=== PATIENT | female | born 1945 | race Caucasian/White ===

== ENCOUNTER 2024-04-30 14:40 | Inpatient (IN) | payer MEDICARE, OTHER ==
[~2024-04-30] VITALS: Ht 162.6 cm; Wt 56.0 kg
[~2024-04-30 14:40] MED LIST: ACET325T55 PO; ASPI-1397 PO; ATOR-2 PO; CEPH-585 PO; CYCL-1 PO; DOXY-460 PO; GABA300C PO; HYDR-3972 PO; LISI20TA28 PO; ONDA-243 PO; etomidate 2mg/ml inj. ONE
[2024-04-30 14:43] VITALS: TEMP 98.7
[2024-04-30] MEDS ORDERED: iohexol 350MG/ML 100ml bottle IV ONE ×2 (14:47→16:06)
[2024-04-30] MEDS ORDERED: fentaNYL/PF 50MCG/1 ML 2ML syringe ONE (14:47)
[2024-04-30] MEDS ORDERED: iohexol 350 MG/ML 50ML vial IV ONE (14:47)
[2024-04-30] MEDS ORDERED: midazolam 1 mg/ML 2ml injection ONE (14:47)
[2024-04-30] MEDS ORDERED: LIDOcaine 1% 30ml preserv. free vial ONE (14:47)
[2024-04-30] MEDS ORDERED: heparin 1,000 UNITS/NS 500ml 0 ML ONE (14:47)
[2024-04-30] MEDS ORDERED: nitroGLYCERIN 500mcg/5mL D5W 0 ML IV ONE (14:48)
[2024-04-30] MEDS ORDERED: verapamil 2.5 mg/ml inj IV ONE (14:48)
[2024-04-30] MEDS ORDERED: LIDOcaine 1% (10mg/ml) 2ml vial ONE (14:48)
[2024-04-30] MEDS ORDERED: heparin 1,000unit/ml 10ml vial 0 ML ONE (14:48)
[2024-04-30 14:53] VITALS: PULSE 111; RESP 30; O2SAT 95
[2024-04-30 15:03] LABS: BASOPHILS % (AUTO) 0 % (0-1); EOSINOPHILS % (AUTO) 0 % (0-6); HEMATOCRIT 28.6 % (35.0-45.0); HEMOGLOBIN 9.1 g/dl (12.0-16.0); LYMPHOCYTES # (AUTO) 0.8 X10'3 (1.1-4.8); MEAN CORPUSCULAR HEMOGLOBIN 30.4 PG (27.0-31.0); MEAN CORPUSCULAR HGB CONC 31.8 g/dL (33.0-36.5); MEAN CORPUSCULAR VOLUME 95.4 FL (78-98); MEAN PLATELET VOLUME 8.6 FL (7.4-10.4); MONOCYTES # (AUTO) 0.5 X10'3 (0-0.9); MONOCYTES % (AUTO) 2.5 % (2-12); NEUTROPHILS # (AUTO) 18.4 X10'3 (1.8-7.7); NEUTROPHILS % (AUTO) 93.5 % (42-75); PLATELET COUNT 366 X10'3 (140-440); RED CELL DISTRIBUTION WIDTH 18.1 % (11.5-14.5); WHITE BLOOD COUNT 19.7 X10'3 (4.5-11.0)
[2024-04-30 15:08] LABS: ABG BASE EXCESS 5.4 mmol/L (-2.0-2.0); ABG HCO3 27.4 mmol/L (22.0-26.0); ABG OXYGEN SATURATION 92.5 % (92-98.5); ABG PCO2 (T) 30.8 mmHg (32.0-45.0); ABG PH (T) 7.567 (7.350-7.450); ABG PO2 (T) 62.8 mmHg (75.0-100.0); ALLEN'S TEST POSITIVE; FCOHb 0.3 % (0.5-1.5); FHHb 7.5 % (0.0-5.0); FMetHb 0.3 % (0.0-1.5); FO2Hb 91.9 % (94-97); MODE MASK - BIPAP; PATIENT TEMPERATURE 37.1; RESPIRATORY RATE 12 b/min; TIDAL VOLUME 509 mL; TOTAL HEMOGLOBIN 9.5 G/dl (12.0-16.0)
[2024-04-30 15:25] LABS: ALBUMIN 1.9 G/DL (3.4-5.0); ANION GAP 10 (8-16); BLOOD UREA NITROGEN 31 MG/DL (7-18); BUN/CREATININE RATIO 20.9 (10.0-20.0); CHLORIDE 105 MMOL/L (99-107); CREATININE 1.48 MG/DL (0.40-0.90); GLUCOSE 100 MG/DL (70-104); SODIUM 147 MMOL/L (135-145); TOTAL CARBON DIOXIDE 32.4 MMOL/L (24-32); eCRCL 28 ML/MIN; eGFR 34 ML/MIN
[2024-04-30 15:31] LABS: POTASSIUM 2.9 MMOL/L (3.5-5.1)
[2024-04-30 15:55] LABS: PRO BRAIN NATRIURETIC PEPTIDE > 30000 PG/ML (0-450)
[2024-04-30] MEDS ORDERED: potassium CL 10mEq/100ml bag 100 ML IV PRN (17:05)
[2024-04-30 17:14] VITALS: PULSE 116; RESP 30; O2SAT 97
[2024-04-30] MEDS: aspirin 325mg tablet PO ONE ×2 (17:25→19:44)
[2024-04-30] MEDS: furosemide 10 MG/1 ML 10ml inj IV ONE (17:32)
[2024-04-30] MEDS: piperacillin/tazo 3.375gm/50ml 50 ML IV ONE (17:33)
[2024-04-30] MEDS: potassium CL 10mEq/100ml bag 100 ML IV PRN (17:58)
[2024-04-30] MEDS: vancomycin/NS 1 GM ADD-VANTAGE 250 ML IV ONE ×2 (18:10→18:11)
[2024-04-30 18:43] LABS: APTT 30 SECONDS (22-32); INR 1.4 INR; PROTHROMBIN TIME 13.9 SECONDS (9.0-12.0)
[2024-04-30] MEDS: MESSAGE TO NURSING IV ONE (18:47)
[2024-04-30] MEDS ORDERED: acetaminophen 325mg tablet PO PRN ×2 (19:00)
[2024-04-30] MEDS ORDERED: morphine 2 MG/ML inj. syringe IV PRN (19:00)
[2024-04-30] MEDS ORDERED: ondansetron/PF 4mg/2ml inj IV PRN (19:00)
[2024-04-30] MEDS ORDERED: morphine 4 MG/ML inj SYRINge IV PRN (19:00)
[2024-04-30] MEDS ORDERED: magnesium hydroxide 30ml (MOM) UD suspension PO PRN (19:00)
[2024-04-30] MEDS: heparin 10,000 units/1 ML INJ IV ONE (19:09)
[2024-04-30] MEDS: heparin 25,000 UNIT/250ml bag 250 ML IV PRN (19:10)
[2024-04-30 19:11] VITALS: PULSE 112; RESP 33; O2SAT 95
[2024-04-30 19:12] VITALS: PULSE 112; RESP 33; O2SAT 95
[2024-04-30 22:12] LABS: ABG BASE EXCESS 5.5 mmol/L (-2.0-2.0); ABG HCO3 28.4 mmol/L (22.0-26.0); ABG PCO2 (T) 34.3 mmHg (32.0-45.0); ABG PH (T) 7.536 (7.350-7.450); ABG PO2 (T) 75.2 mmHg (75.0-100.0); ALLEN'S TEST POSITIVE; FCOHb 0.8 % (0.5-1.5); FHHb 4.9 % (0.0-5.0); FMetHb 0.3 % (0.0-1.5); MODE MASK - BIPAP; RESPIRATORY RATE 16 b/min; TOTAL HEMOGLOBIN 8.4 G/dl (12.0-16.0)
[2024-04-30] MEDS: Potassium Cl 40 MEQ in sodium chloride 0.45% 500 ML IV ONE (22:52)
[2024-04-30] MEDS: magnesium sulf-water 2g/50mL 50 ML IV PRN (23:19)
[2024-04-30] MEDS: POTASSIUM BICARB 20meq eff tab 20 MEQ TABLET.EFF PO SCH (23:20)
[2024-04-30] MEDS: piperacillin/tazo 3.375gm/50ml 50 ML IV SCH (23:20)
[2024-04-30 23:27] VITALS: PULSE 105; RESP 28; O2SAT 94
[2024-05-01] VITALS (25 sets, daily range): BP systolic 97–129; BP diastolic 58–95; PULSE 90–108; RESP 18–31; O2SAT 82–99
[2024-05-01] MEDS ORDERED: atropine 0.1mg/ml 10ml syringe ONE
[2024-05-01] MEDS ORDERED: heparin, porcine 5000 units/ml vial SQ SCH
[2024-05-01 01:55] LABS: ALANINE AMINOTRANSFERASE 33 U/L (12-78); ALBUMIN 1.7 G/DL (3.4-5.0); ALBUMIN/GLOBULIN RATIO 0.4 (1.1-1.5); ALKALINE PHOSPHATASE 198 IU/L (46-116); ANION GAP 11 (8-16); ASPARTATE AMINO TRANSFERASE 90 U/L (10-37); BILIRUBIN,TOTAL 0.8 MG/DL (0.1-1.0); BLOOD UREA NITROGEN 38 MG/DL (7-18); BUN/CREATININE RATIO 22.2 (10.0-20.0); CALCIUM 8.5 MG/DL (8.5-10.1); CHLORIDE 105 MMOL/L (99-107); CREATININE 1.71 MG/DL (0.40-0.90); GLUCOSE 101 MG/DL (70-104); MAGNESIUM 2.1 MG/DL (1.5-2.4); PHOSPHORUS 4.5 MG/DL (2.3-4.5); POTASSIUM 3.4 MMOL/L (3.5-5.1); SODIUM 148 MMOL/L (135-145); TOTAL CARBON DIOXIDE 32.2 MMOL/L (24-32); TOTAL PROTEIN 6.3 G/DL (6.4-8.2); eCRCL 24 ML/MIN; eGFR 29 ML/MIN
[2024-05-01] MEDS ORDERED: TRAM50TA2 PO (02:39)
[2024-05-01] MEDS ORDERED: AMI200T PO (02:39)
[2024-05-01] MEDS ORDERED: ATR0.5NEB IH (02:39)
[2024-05-01] MEDS ORDERED: CYAN10007 IM (02:39)
[2024-05-01] MEDS ORDERED: CEFE1FRO IV (02:39)
[2024-05-01] MEDS ORDERED: APIX2.5T PO (02:39)
[2024-05-01] MEDS ORDERED: MAGN64TA10 PO (02:39)
[2024-05-01] MEDS ORDERED: PANT-47 PO (02:39)
[2024-05-01] MEDS ORDERED: CARV3.122 PO (02:39)
[2024-05-01] MEDS ORDERED: HYDR-3964 PO (02:39)
[2024-05-01] MEDS ORDERED: NICO-630 TD (02:39)
[2024-05-01] MEDS ORDERED: ALB0.5UD IH (02:39)
[2024-05-01] MEDS ORDERED: IRON150C5 PO (02:39)
[2024-05-01] MEDS ORDERED: FURO-150 PO (02:39)
[2024-05-01] MEDS: MESSAGE TO NURSING IV ONE ×2 (03:31→11:10)
[2024-05-01] MEDS ORDERED: potassium Cl 40MEQ/1/2NS 520ml 520 ML IV PRN (04:50)
[2024-05-01] MEDS: potassium Cl 40MEQ/270ML bag 270 ML IV PRN (05:15)
[2024-05-01 05:55] LABS: HEMATOCRIT 24.3 % (37.7-47.9); HEMOGLOBIN 7.8 G/DL (11.5-16.0); LYMPHOCYTES % 3 % (24-44); MEAN CORPUSCULAR HEMOGLOBIN 29.5 PG (27-31.2); PLATELET COUNT 311 X10'3 (130-400); RED BLOOD COUNT 2.64 X10'6 (3.60-4.90); RED CELL DISTRIBUTION WIDTH 17.2 % (11-16); SEGMENTED NEUTROPHILS % 95 % (36-66); WHITE BLOOD COUNT 19.8 X10'3 (4.5-11.0)
[2024-05-01 05:56] LABS: BASOPHILS % 0 % (0-2); EOSINOPHILS % (AUTO) 0 % (0-6); LYMPHOCYTES # (AUTO) 0.6 X10'3 (1.1-4.8); MONOCYTES # (AUTO) 0.4 X10'3 (0-0.9); MONOCYTES % 2 % (0-12); NEUTROPHILS # (AUTO) 18.8 X10'3 (1.8-7.7)
[2024-05-01] MEDS: heparin 10,000 units/1 ML INJ IV PRN (11:05)
[2024-05-01] MEDS ORDERED: propofol 1000mg/100ml bottle 100 ML IV SCH (11:15)
[2024-05-01] MEDS ORDERED: FENTANYL-0.9 % NACL/PF 100 ML IV SCH (11:15)
[2024-05-01] MEDS: propofol 1000mg/100ml bottle 100 ML IV ONE (11:58)
[2024-05-01] MEDS: fentaNYL/PF 50MCG/1 ML 2ML syringe IV ONE (12:14)
[2024-05-01] MEDS ORDERED: fentaNYL/PF 50MCG/1 ML 2ML syringe IV PRN (12:20)
[2024-05-01] MEDS: pantoprazole 40 MG vial IV SCH (12:34)
[2024-05-01] MEDS: propofol 1000mg/100ml bottle 100 ML IV SCH (12:35)
[2024-05-01 12:36] LABS: ABG BASE EXCESS 4.9 mmol/L (-2.0-2.0); ABG HCO3 29.9 mmol/L (22.0-26.0); ABG OXYGEN SATURATION 99.3 % (92-98.5); ABG PCO2 (T) 45.6 mmHg (32.0-45.0); ABG PH (T) 7.432 (7.350-7.450); ABG PO2 (T) 186.9 mmHg (75.0-100.0); ALLEN'S TEST POSITIVE; FCOHb 0.3 % (0.5-1.5); FHHb 0.7 % (0.0-5.0); FMetHb 0.3 % (0.0-1.5); FO2Hb 98.7 % (94-97); MODE PRVC; PATIENT TEMPERATURE 36.3; PEEP 8 cm H2O; RESPIRATORY RATE 18 b/min; TIDAL VOLUME 400 mL; TOTAL HEMOGLOBIN 8.8 G/dl (12.0-16.0)
[2024-05-01] MEDS: FENTANYL-0.9 % NACL/PF 100 ML IV SCH (13:22)
[2024-05-01] MEDS: normal saline 1000ml 1,000 ML IV SCH (16:57)
[2024-05-01] MEDS: POTASSIUM CHLORIDE 20 MEQ/15 ML oral solution PO SCH (16:58)
[2024-05-01] MEDS ORDERED: LIDOcaine 1% 30ml preserv. free vial ONE (17:53)
[2024-05-01] MEDS ORDERED: heparin 1,000unit/ml 10ml vial 10 ML ONE (17:54)
[2024-05-01] MEDS ORDERED: midazolam 1 mg/ML 2ml injection ONE (17:54)
[2024-05-01] MEDS ORDERED: fentaNYL/PF 50MCG/1 ML 2ML syringe ONE (17:54)
[2024-05-01] MEDS ORDERED: heparin 1,000 UNITS/NS 500ml 500 ML ONE (17:54)
[2024-05-01] MEDS ORDERED: iohexol 350MG/ML 100ml bottle IV ONE (17:54)
[2024-05-01] MEDS ORDERED: vancomycin inj 500 MG in normal saline 100ml IV soln 100 ML IV SCH (18:00)
[2024-05-01] MEDS ORDERED: vancomycin/NS 1 GM ADD-VANTAGE 250 ML IV SCH (18:00)
[2024-05-01] MEDS ORDERED: NORMAL SALINE IV ONE ×3 (18:25→18:45)
[2024-05-01] MEDS ORDERED: ALTEPLASE IV ONE ×3 (18:25→18:45)
[2024-05-01] MEDS ORDERED: ANGIO IV ONE ×3 (18:25→18:45)
[2024-05-01] MEDS ORDERED: MESSAGE TO NURSING IV ONE (19:00)
[2024-05-01] MEDS ORDERED: lactobacillus rhamnosus 10,000 MMU CELLS/CAPSULE PO SCH (20:00)
[2024-05-01] MEDS ORDERED: magnesium Cl slow-release 64mg tablet PO SCH (20:00)
[2024-05-01] MEDS ORDERED: apixaban 2.5mg tablet PO SCH (20:00)
[2024-05-01] MEDS ORDERED: carVEDilol 3.125mg tablet PO SCH (20:00)
[2024-05-01] MEDS ORDERED: DOPamine 400mg/D5W 250ml 0 ML IV ONE (20:16)
[2024-05-02] MEDS ORDERED: nicotine 14mg patch - 24hr TD SCH (08:00)
[2024-05-02] MEDS ORDERED: pantoprazole 40 MG vial IV SCH (08:00)
[2024-05-02] MEDS ORDERED: lisinopril 20mg tablet PO SCH (08:00)
[2024-05-02] MEDS ORDERED: atorvastatin 20mg tablet PO SCH (08:00)
[2024-05-02] MEDS ORDERED: iron polysaccharide complex 150mg capsule PO SCH (08:00)
[2024-05-02] MEDS ORDERED: VANCOMYCIN LEVEL IV ONE (08:30)
[2024-05-02] MEDS ORDERED: mineral oil/petrolatum ophthal oint EACHEYE SCH (14:00)
== END 2024-05-01 22:34 | DRG 252 ==
LOC: ER 14:41 → ED HOLD 19:18 → EDBEDREQ 05-01 00:01 → CICU 2S 05-01 00:30
PROVIDERS: ADMIT Internal Medicine Critical Care Medicine; ATTEND Internal Medicine Critical Care Medicine
PROC: 5A09357 Assistance with Respiratory Ventilation, Less than 24 Consecutive Hours, Continuous Positive Airway Pressure (ICD-10-PCS; 2024-04-30)
PROC: BW24ZZZ Computerized Tomography (CT Scan) of Chest and Abdomen (ICD-10-PCS; 2024-04-30)
PROC: 041 Lower Arteries, Bypass (ICD-10-PCS; principal; 2024-05-01)
PROC: 047Y3ZZ Dilation of Lower Artery, Percutaneous Approach (ICD-10-PCS; 2024-05-01)
PROC: 3E03317 Introduction of Other Thrombolytic into Peripheral Vein, Percutaneous Approach (ICD-10-PCS; 2024-05-01)
PROC: 5A1935Z Respiratory Ventilation, Less than 24 Consecutive Hours (ICD-10-PCS; 2024-05-01)
PROC: 0BH17EZ Insertion of Endotracheal Airway into Trachea, Via Natural or Artificial Opening (ICD-10-PCS; 2024-05-01)
DX: E11.51 Type 2 diabetes mellitus with diabetic peripheral angiopathy without gangrene (principal); I21.4 Non-ST elevation (NSTEMI) myocardial infarction; J69.0 Pneumonitis due to inhalation of food and vomit; I50.21 Acute systolic (congestive) heart failure; J96.00 Acute respiratory failure, unspecified whether with hypoxia or hypercapnia; N17.0 Acute kidney failure with tubular necrosis; L97.829 Non-pressure chronic ulcer of other part of left lower leg with unspecified severity; L97.819 Non-pressure chronic ulcer of other part of right lower leg with unspecified severity; I11.0 Hypertensive heart disease with heart failure; D64.9 Anemia, unspecified; E78.5 Hyperlipidemia, unspecified; I48.0 Paroxysmal atrial fibrillation; Z72.0 Tobacco use; Z79.02 Long term (current) use of antithrombotics/antiplatelets; Z79.82 Long term (current) use of aspirin; Z82.49 Family history of ischemic heart disease and other diseases of the circulatory system; Z90.710 Acquired absence of both cervix and uterus; I69.928 Other speech and language deficits following unspecified cerebrovascular disease; I73.9 Peripheral vascular disease, unspecified
CPT/HCPCS: 36246; 36247; 36415; 36600; 37213; 37224; 71045; 71275; 80048; 80053; 82803; 82948; 83605; 83735; 83880; 84100; 84132; 84145; 84484; 85018; 85025; 85610; 85730; 87040; 87070; 87081; 87811; 93005; 93308; 93926; 93970; 94002; 94660; 94760; 99152; 99153; 99291; A6212; A6258; C1725; C1729; G0378; J0171; J0461; J1265; J1644; J1940; J2250; J2470; J2543; J2704; J3010; J3370; J3480; J3490; J7030; J7040; J7050; Q9967